=== PATIENT | female | born 1960 | race Caucasian/White ===

== ENCOUNTER 2019-09-22 02:04 | Outpatient (CLI) | payer OTHER, SELFPAY ==
[2019-09-22 09:03] LABS: Hemoglobin A1C 5.7 % (3.8-5.6)
[2019-09-22 09:25] LABS: ALT 21 U/L (14-59); AST 9 U/L (15-37); Albumin 3.8 g/dL (3.4-5.0); Alkaline Phosphatase 116 U/L (46-116); Anion Gap 10.6 mmol/L (3-11); BUN 15 mg/dL (7-18); Bilirubin, Total 0.5 mg/dL (0.2-1.0); CO2 25.4 mmol/L (21.0-32.0); Calcium 9.2 mg/dL (8.5-10.1); Calculated LDL 126 mg/dL (<100); Chloride 104 mmol/L (98-107); Cholesterol 191 mg/dL (<200); Glucose 98 mg/dL (74-106); HDL Cholesterol 52 mg/dL (40-60); Potassium 4.5 mmol/L (3.5-5.1); Sodium 140 mmol/L (136-145); Total Protein 7.6 g/dL (6.4-8.2); Triglyceride 66 mg/dL (<150)
[2019-09-23 10:57] LABS: Hepatitis C Ab w Rflx HCV PCR Negative (Negative)
[2019-09-23 11:27] LABS: HIV-1/2 Ag & Ab Screen Negative (Negative)
== END 2019-09-22 02:24 ==
PROVIDERS: PCP Nurse Practitioner Family; Visit Provider Family Medicine
DX: E78.5 Hyperlipidemia, unspecified (principal); E11.9 Type 2 diabetes mellitus without complications; Z11.3 Encounter for screening for infections with a predominantly sexual mode of transmission; Z11.4 Encounter for screening for human immunodeficiency virus [HIV]; Z11.59 Encounter for screening for other viral diseases
CPT/HCPCS: 36415; 80053; 80061; 86803; 87389; 83036

== ENCOUNTER 2019-09-27 10:35 | Outpatient (CLI) | payer OTHER, SELFPAY ==
[2019-09-27 11:07] LABS: Abs Immature Grans 0.02 k/cumm (0.0-0.09); Absolute Basophil Count 0.04 k/cumm (0.0-0.2); Absolute Eosinophil Count 0.01 k/cumm (0.0-0.7); Absolute Lymphocyte Count 3.46 k/cumm (1.2-3.4); Absolute Monocyte Count 0.79 k/cumm (0.11-0.7); Absolute Neutrophil Count 6.79 k/cumm (1.2-6.7); Basophils % 0.4; Eosinophils % 0.1; HGB 13.6 g/dL (12.0-15.5); Immature Grans % 0.2 %; Lymphocytes % 31.1; Mean Corpuscular Hemoglobin 30.5 pg (27.0-33.0); Mean Corpuscular Volume 89.7 fL (80-95); Mean Platelet Volume 9.6 fL (8.0-11.0); Monocytes % 7.1; Neutrophils % 61.1; Platelet Count 490 x1000/uL (130-400); RBC 4.46 m/cumm (4.00-5.20); RBC Distribution Width 13.9 % (11.7-14.6); White Blood Cell Count 11.11 k/cumm (4.4-10.8)
[2019-09-27 12:02] LABS: TSH (W/Ref FT4) 1.22 uIU/mL (0.36-3.74)
== END 2019-09-27 10:55 ==
PROVIDERS: PCP Nurse Practitioner Family; Visit Provider Nurse Practitioner Family
DX: R42 Dizziness and giddiness (principal)
CPT/HCPCS: 36415; 84443; 85025

== ENCOUNTER 2019-09-28 10:07 | Outpatient (CLI) | payer OTHER, SELFPAY | END 2019-09-28 10:27 | PROVIDERS: PCP Nurse Practitioner Family; Visit Provider Nurse Practitioner Family | DX: R42 Dizziness and giddiness (principal); I47.1 Supraventricular tachycardia; I49.1 Atrial premature depolarization | CPT/HCPCS: 93225 ==

== ENCOUNTER 2019-09-28 11:32 | Outpatient (REF) | payer OTHER, SELFPAY ==
[2019-09-29 12:55] LABS: Fecal Immunochemical Test Negative (Negative)
== END 2019-09-28 11:52 ==
LOC: LBN 11:32
PROVIDERS: PCP Nurse Practitioner Family; Visit Provider Nurse Practitioner Family
DX: Z12.11 Encounter for screening for malignant neoplasm of colon (principal)
CPT/HCPCS: 82274

== ENCOUNTER 2019-10-01 08:56 | Outpatient (CLI) | payer OTHER, SELFPAY ==
--- NOTE | 2019-10-01 10:08 | W.HOLTRPT ---
Date of service: 10/01/19 Time of Service: 10:08 Holter Monitor Report Holter Monitor Note: This is a 2-day Holter monitor ordered for indication of dizziness. ?The patient was in normal sinus rhythm for the majority of the recording. ?There were 3 episodes of supraventricular tachycardia with the longest lasting 11 beats. ?There were rare (less than 1%) premature atrial contractions. ?There were no episodes of ventricular tachycardia and rare (31 total) single ventricular ectopic beats. ?There were no pauses greater than 3 seconds, no evidence of atrial fibrillation and no episodes of high degree heart block. ?There were no patient triggered events.
== END 2019-10-01 09:16 ==
PROVIDERS: PCP Nurse Practitioner Family; Visit Provider Nurse Practitioner Family
DX: R42 Dizziness and giddiness (principal); I47.1 Supraventricular tachycardia; I49.1 Atrial premature depolarization
CPT/HCPCS: 93226

== ENCOUNTER 2019-11-25 01:09 | Outpatient (CLI) | payer OTHER, SELFPAY ==
[2019-11-25 11:43] LABS: Anion Gap 7.7 mmol/L (3-11); BUN 13 mg/dL (7-18); CO2 30.3 mmol/L (21.0-32.0); CREATININE 0.73 mg/dL (0.55-1.02); Calcium 9.7 mg/dL (8.5-10.1); Chloride 98 mmol/L (98-107); Glucose 111 mg/dL (74-106); Sodium 136 mmol/L (136-145)
== END 2019-11-25 01:29 ==
PROVIDERS: PCP Nurse Practitioner Family; Visit Provider Nurse Practitioner Family
DX: I10 Essential (primary) hypertension (principal)
CPT/HCPCS: 36415; 80048

== ENCOUNTER 2020-01-03 02:15 | Outpatient (CLI) | payer OTHER, SELFPAY ==
--- NOTE | 2020-01-03 08:00 | DI.MAMMO_ITS ---
EXAM: MG MAMMO SCREENING CLINICAL HISTORY: SCREENING, Z12.39 TECHNIQUE: Bilateral full field digital CC and MLO mammographic images were obtained with 3D tomosyn thesis and utilizing computer aided detection (CAD). COMPARISON: Available for comparison. FINDINGS: Masses/Architectural Distortion: There is a new nodular density in the upper outer quadrant of the ri ght breast. This area should be further evaluated with a spot compression view. Ultrasound may be i ndicated at that time. Microcalcifications: No suspicious pleomorphic-type are seen. Skin Thickening/Nipple Retraction: None. IMPRESSION: 1. New area of nodularity in the upper outer quadrant of the right breast. 2. Spot compression views and ultrasound are requested for further evaluation of the right breast. BI-RADS Category 0 - Assessment Incomplete: Need additional imaging evaluation Breast Density - Category B - Scattered areas of fibroglandular density A negative radiographic report should not delay biopsy if a dominant or clinically suspicious mass is present. Up to ten percent of cancers are not identified on mammography. A negative report may reinforce clinical impression. Adenosis and dense breasts may obscure an underlying neoplasm. False positive reports average 6 to 10%. Patient will receive a letter notifying them of these results.
== END 2020-01-03 02:35 ==
PROVIDERS: PCP Nurse Practitioner Family; Visit Provider Nurse Practitioner Family
DX: Z12.31 Encounter for screening mammogram for malignant neoplasm of breast (principal); R92.8 Other abnormal and inconclusive findings on diagnostic imaging of breast
CPT/HCPCS: 77063; 77067

== ENCOUNTER 2020-01-07 02:17 | Outpatient (CLI) | payer OTHER, SELFPAY ==
--- NOTE | 2020-01-07 | DI.MAMMO_ITS ---
EXAM: MG MAMMO SCREEN CALL BACK UNI CLINICAL HISTORY: F/U ABNL MAMMO, NEW NODULAR DENSITY UPPER OUTER QUADRANT. TECHNIQUE: Craniocaudal and mediolateral oblique Full Field Digital Mammography views of the right b reast with Computer Aided Diagnosis followed by Tomosynthesis and right breast ultrasound. COMPARISON: US US BREAST RT LIMITED from 01/07/2020 FINDINGS: Mammography/Tomosynthesis: Masses/Architectural Distortion: There is a well-circumscribed nodule in the 12 o'clock position of t he right breast which persists. Microcalcifictions: No suspicious pleomorphic-type are seen. Skin Thickening/Nipple Retraction: None. Right breast US: Echotexture: Normal appearance of the glandular tissue. Shadowing: No suspicious foci. Cyst: Ovoid anechoic well-circumscribed lesion at the 12 o'clock position 2 cm from the nipple measur ing 0.6 x 0.3 x 0.7 cm. This appears to correspond to the mammographic abnormality. Solid lesions: None seen. Ductal dilation: None. Lymph nodes: A few sonographically benign appearing lymph nodes are seen in the right axilla. The la rgest measures 1.9 x 1.4 x 1.9 cm. IMPRESSION: 1. No evidence of malignancy is noted. A 0.7 cm simple cyst is seen in the right breast to correspond to the mammographic abnormality. 2. Unless there is more urgent need, follow-up screening mammography is recommended, as per [employer] guidelines. 3. The findings were discussed with the patient on the date of the examination. BI-RADS Category 2 - Benign Findings Breast Density - Category B - Scattered areas of fibroglandular density A negative radiographic report should not delay biopsy if a dominant or clinically suspicious mass is present. Up to ten percent of cancers are not identified on mammography. A negative report may reinforce clinical impression. Adenosis and dense breasts may obscure an underlying neoplasm. False positive reports average 6 to 10%. Patient will receive a letter notifying them of these results.
== END 2020-01-07 02:37 ==
PROVIDERS: PCP Nurse Practitioner Family; Visit Provider Nurse Practitioner Family
DX: Z12.31 Encounter for screening mammogram for malignant neoplasm of breast (principal); R92.8 Other abnormal and inconclusive findings on diagnostic imaging of breast; N60.01 Solitary cyst of right breast; R59.0 Localized enlarged lymph nodes
CPT/HCPCS: 76642; 77063; 77067

== ENCOUNTER 2020-01-18 00:42 | Outpatient (CLI) | payer OTHER, SELFPAY ==
--- NOTE | 2020-01-18 07:15 | DI.RAD_ITS ---
EXAM: XR WRIST RT COMPLETE CLINICAL HISTORY: Pain swelling ?OA vs. tendonitis vs. other,M25.531 TECHNIQUE: COMPARISON: No exams were available for comparison FINDINGS: Three views were obtained. There is mild diffuse soft tissue swelling of the wrist. There is demine ralization bones of the wrist in a nonspecific pattern. There is marked narrowing of the cartilagino us joint space of greater multangular 1st metacarpal joint with subchondral sclerosis and cyst format ion well as prominent hypertrophic osteophytes at this site. Mild cartilaginous joint space narrowin g noted as well at the lesser multangular is 2nd metacarpal joint and at the capitate 3rd metacarpal joint. Slight widening navicular lunate joint may be present. No other significant alignment abnorm ality or other bony abnormality seen. IMPRESSION: Severe degenerative change at greater multangular 1st metacarpal joint. Nonspecific demineralization of the bones of the wrist.
== END 2020-01-18 01:02 ==
PROVIDERS: PCP Nurse Practitioner Family; Visit Provider Nurse Practitioner Family
DX: M25.531 Pain in right wrist (principal); M18.11 Unilateral primary osteoarthritis of first carpometacarpal joint, right hand; M79.89 Other specified soft tissue disorders; M85.88 Other specified disorders of bone density and structure, other site
CPT/HCPCS: 73110

== ENCOUNTER 2020-02-11 08:51 | Outpatient (CLI) | payer OTHER, SELFPAY ==
--- NOTE | 2020-02-11 08:45 | DI.RAD_ITS ---
EXAM: XR WRIST RT LIMITED CLINICAL HISTORY: R wrist pain TECHNIQUE: COMPARISON: CR XR WRIST RT COMPLETE from 01/18/2020 FINDINGS: Single clenched fist view of the wrist was obtained. There are severe degenerative changes at the gr eater multangular 1st metacarpal joint. There are moderate degenerative changes involving the interc arpal joints of the distal carpal row. There is widening of the navicular lunate joint which may ind icate ligamentous laxity or prior injury. There is an ulnar minus variance. IMPRESSION:
== END 2020-02-11 09:11 ==
PROVIDERS: PCP Nurse Practitioner Family; Referring Provider Nurse Practitioner Family; Visit Provider Physician Assistant
DX: M25.531 Pain in right wrist (principal); M19.031 Primary osteoarthritis, right wrist
CPT/HCPCS: 73100

== ENCOUNTER 2020-02-17 00:31 | Outpatient (CLI) | payer OTHER, SELFPAY ==
--- NOTE | 2020-02-17 08:15 | DI.MRI_ITS ---
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 TECHNIQUE: Multiplanar multisequence MRI was performed. COMPARISON: None. FINDINGS: BONES: There is no fracture or contusion pattern. There is marrow edema seen in the distal radius and ulna, all of the carpal bones and the proximal 2nd through 5th metacarpal bones. Subchondral cysts are seen in several bones including the proximal 2nd 3rd and 4th metacarpal bones and the scaphoid. No evidence of an occult fracture is identified. JOINTS: Fluid is seen within the radiocarpal and carpal joints. TENDONS: Flexors: Unremarkable. Extensors: Unremarkable. MUSCLES: Unremarkable. MEDIAN NERVE: Unremarkable on this noncontrast examination. SOFT TISSUES: Hyperintense signal is seen in the soft tissues around the wrist. There is also for in tense signal seen surrounding the joints in the carpus and the metacarpal joints LIGAMENTS: No gross abnormality is seen at the scapholunate ligament. TRIANGULAR FIBROCARTILAGE: Unremarkable. OTHER: IMPRESSION: 1. Diffuse marrow edema, joint effusions, subchondral cysts and soft tissue swelling involving the wr ist as described above. Findings suspicious for an inflammatory arthritis. An infectious arthritis cannot be excluded. 2. No evidence of an occult fracture or ligament tear. DATA REPOSITORY:
== END 2020-02-17 00:51 ==
PROVIDERS: PCP Nurse Practitioner Family; Visit Provider Physician Assistant
DX: M25.331 Other instability, right wrist (principal); M25.431 Effusion, right wrist; M25.831 Other specified joint disorders, right wrist; S63.004A Unspecified dislocation of right wrist and hand, initial encounter
CPT/HCPCS: 73221

== ENCOUNTER 2020-03-08 03:23 | Outpatient (CLI) | payer OTHER, SELFPAY ==
[2020-03-08 14:50] LABS: HCT 38.8 % (36.0-46.0); HGB 12.7 g/dL (11.2-15.7); MCH 30.1 pg (27.0-33.0); MCHC 32.7 % (32.0-36.0); MCV 91.9 fL (80-95); MPV 9.3 fL (8.0-11.0); Platelet Count 438 10^3/uL (130-400); RBC 4.22 10^6/uL (3.93-5.22); RDW 13.3 % (11.7-14.6); RDW-SD 45.1 fL; WBC 10.68 10^3/uL (4.4-10.8)
[2020-03-08 16:05] LABS: C-Reactive Protein 0.73 mg/dL (0.0-0.3)
[2020-03-08 16:09] LABS: ESR 23 mm/hr (0-30)
[2020-03-08 21:24] LABS: Rheumatoid Factor 41.9 IU/mL (<12.0)
[2020-03-09 15:44] LABS: ANA Interpretation Positive (Negative); ANA Titer Pattern 1:160 Speckled
== END 2020-03-08 03:43 ==
PROVIDERS: PCP Nurse Practitioner Family; Visit Provider Student in an Organized Health Care Education/Training Program
DX: M19.031 Primary osteoarthritis, right wrist (principal)
CPT/HCPCS: 36415; 85027; 85652; 86038; 86140; 86431

== ENCOUNTER 2020-10-31 04:13 | Outpatient (CLI) | payer OTHER, SELFPAY ==
[2020-10-31 11:27] LABS: HCT 42.4 % (36.0-46.0); HGB 14.5 g/dL (11.2-15.7); MCH 30.7 pg (27.0-33.0); MCHC 34.2 % (32.0-36.0); MCV 89.6 fL (80-95); MPV 9.3 fL (8.0-11.0); Nucleated RBC 0 %; Platelet Count 440 10^3/uL (130-400); RBC 4.73 10^6/uL (3.93-5.22); RDW 13.6 % (11.7-14.6); RDW-SD 45.1 fL; WBC 12.02 10^3/uL (4.4-10.8)
[2020-10-31 12:20] LABS: ALT 28 U/L (14-59); AST 12 U/L (15-37); Alkaline Phosphatase 142 U/L (46-116); Anion Gap 10.3 mmol/L (3-11); BUN 14 mg/dL (7-18); CO2 26.7 mmol/L (21.0-32.0); CREATININE 0.7 mg/dL (0.55-1.02); Calcium 9.2 mg/dL (8.5-10.1); Calculated LDL 138 mg/dL (<100); Chloride 103 mmol/L (98-107); Cholesterol 208 mg/dL (<200); Glucose 109 mg/dL (74-106); HDL Cholesterol 50 mg/dL (40-60); Potassium 4.5 mmol/L (3.5-5.1); Sodium 140 mmol/L (136-145); Total Protein 8.2 g/dL (6.4-8.2); Triglyceride 102 mg/dL (<150)
[2020-10-31 12:27] LABS: Absolute Lymphocyte Count 5.65 10^3/uL (1.2-3.4); Absolute Monocyte Count 1.08 10^3/uL (0.1-0.8); Absolute Neutrophil Count 5.29 10^3/uL (1.2-6.7); Atypical Lymphocytes % 7; Diff Comment Manual Differential; RBC Morphology Normal
[2020-10-31 12:37] LABS: Bilirubin, Total 0.5 mg/dL (0.2-1.0)
[2020-10-31 12:46] LABS: Hemoglobin A1C 5.7 % (<5.7)
== END 2020-10-31 04:14 | disposition home or self-care (01) ==
LOC: LBO 04:13
PROVIDERS: PCP Nurse Practitioner Family; Visit Provider Nurse Practitioner Family
DX: D47.3 Essential (hemorrhagic) thrombocythemia (principal); I10 Essential (primary) hypertension; R73.01 Impaired fasting glucose; E78.5 Hyperlipidemia, unspecified
CPT/HCPCS: 36415; 80053; 80061; 83036; 85025

== ENCOUNTER 2020-11-17 08:41 | Outpatient (CLI) | payer OTHER, SELFPAY ==
[2020-11-17 10:14] LABS: Source Nasal/Nares
[2020-11-17 13:30] LABS: COVID-19 PCR Negative (Negative)
== END 2020-11-17 08:42 | disposition home or self-care (01) ==
PROVIDERS: PCP Nurse Practitioner Family; Visit Provider Surgery
DX: Z20.822 Contact with and (suspected) exposure to COVID-19 (principal); Z01.818 Encounter for other preprocedural examination
CPT/HCPCS: 87635

== ENCOUNTER 2020-11-20 15:02 | Observation (INO) | payer OTHER, SELFPAY ==
[2020-11-20] VITALS (12 sets, daily range): BP systolic 102–145; BP diastolic 69–99; PULSE 70–84; RESP 16–20; TEMP 36.2–37; O2SAT 83–100; BMI 28.8
--- NOTE | 2020-11-20 06:58 | COLE_ITS ---
Date of service: 11/20/20 Time of Service: 12:59 Colonoscopy Report Date of procedure: 11/20/20 Pre-op diagnosis general: Colon Cancer Screening Post-op diagnosis procedure note: other (polyps and diverticulosis) Procedure: Colonoscopy with polypectomy Surgeon: Judy Khan Anesthesia Type: General:No Airway (ASA 2/Charli Molina CRNA) Estimated blood loss (mL): 3 Pathology: other (Transverse polyp, sigmoid polyp and rectal polyp x5) Complications: None Disposition: same day Indications: The patient is here for Colonoscopy pre-op. She has no family history of colon cancer. She has not had any bowel habit changes. -Discussed colonoscopy bowel prep as well as the procedure. Discussed possible complications of the procedure to include bleeding, pain, perforation, missed small lesion/polyp, sore throat, aspiration and adverse reaction to the medications. Questions were answered to patient?s satisfaction. No guarantees were implied or given. Prep: Miralax/Dulcolax Procedure Start Time: 12:59 Procedure End Time: 13:25 Retraction Time: 17 minutes Findings: 7 small polyps mild diverticulosis Procedure Description: After informed consent was obtained the patient was taken to the procedure room and placed in a left decubitous position. Monitors were applied and a time out was done. The patients name, date of , procedure, allergies to medications and metal in their body was reviewed. The patient was then sedated. Once sedated and comfortable a rectal exam was done. External exam was normal. Internal exam revealed a normal sphincter tone and no palpable masses. The scope was then introduced and retro-flexed. No internal hemorrhoids, polyps or masses were identified on retro-flexion. The scope was then advanced to the cecum without difficulty. The ileocecal vlave and appendiceal orifice were remigio ntified. The prep was adequate. The scope was then slowly retracted over 17 minutes back into the rectum. Polyps were removed with cold forceps in the transverse colon, sigmoid colon and rectum. There was mild diverticulosis noted. The scope was removed and the patient was woken up and taken back to Same day surgery in stable condition. The patient tolerated the procedure well and there were no immediate complications. Follow up: The patient should follow up in 5 years unless they develop changes in bowel habits or other new gastrointestinal complaints.
--- NOTE | 2020-11-20 06:59 | W.PM.DSUDISC ---
Discharge Plan Disposition Patient Disposition: HOME Condition: Good Discharge Details Reason For Visit: SCREENING Attending Provider: Judy Khan Primary Care Provider: Leticia Samuels Home Meds and New Rx's Prescriptions: Continued Adult Probiotic 3 billion cell capsule 3,000 mmu cells PO DAILY RF: 0 turmeric root extract 1,053 mg tablet 1,053 mg PO DAILY RF: 0 aspirin 81 mg Tablet,Delayed Release (Dr/Ec) 81 mg PO DAILY RF: 0 Discontinued bisacodyl [Dulcolax (bisacodyl)] 5 mg tablet,delayed release (DR/EC) 5 mg PO ONCE Qty: 4 RF: 0 polyethylene glycol 3350 17 gram/dose powder 238 g PO ONCE Qty: 238 RF: 0 No Action (DME) Blood Glucose Test Strip 1 ea Miscellaneous DAILY Qty: 100 RF: 3 (DME) lancets 28 gauge misc 1 ea Miscellaneous DAILY Qty: 100 RF: 3 (DME) blood-glucose meter 1 EACH misc 1 ea Miscellaneous DAILY Qty: 1 RF: 0 Discharge Instructions Instructions: Diverticulosis (DC) Additional Instructions: Findings:7 small polyps Diverticulosis Follow up: 5 years Please call if you develop: fevers >101.5 Nausea or Vomiting Abdominal pain that is not transient DAY SURGERY UNIT POST ENDOSCOPY INSTRUCTIONS 1. Because there will be medication in your system for the next 24 hours, you may feel a little sleepy. Your coordination will be affected. Therefore: a. Do not drive or operate dangerous equipment for 24 hours. b. Do not drink alcohol beverages for 24 hours (not even beer). c. Plan to go home and rest for the day. 2. Generally there are no restrictions on your activity after a day or so has gone by, but you may feel a bit fatigued for a few days. 3 After you arrive home you may have a light meal and return to a normal diet as you can tolerate it without feeling sick to your stomach. 4. After surgery, you may feel pain or discomfort. This should be only transient, but if it persists please contact your doctor. 5. If there are any questions regarding the findings of your procedure, please feel free to contact your doctor. 6. If you are unable to contact your doctor with a problem, contact the hospital at [phone]. 7. Continue all your regular medications unless directed otherwise. I understand the above instructions and have no questions. Signature of Patient or Responsible Adult Escort Date/Time Name of Responsible Adult Escort Signature of Nurse Date/Time Activity:: Activity as Tolerated Diet:: High Fiber diet Discharge Orders Discharge Orders: Discharge Order (Routine); Ordered 11/20/20 Ordered By: Judy Khan
[2020-11-20] MEDS: Lactated Ringers 1,000 ML 80 ML IV ×2 (12:37→23:16)
--- NOTE | 2020-11-20 12:41 | W.ANESPRE ---
Anesthesia Assessment and Plan Anesthesia History Personal History: No History of Anesthesia Complications Family History: No Family History of Anesthesia Complications Exercise Tolerance Exercise Tolerance: Metabolic Equivalents>4 Cardiac & Pulmonary Exam Cardiac Exam: Normal S1/S2 Heart Sounds Pulmonary Exam: Clear Bilateral Breath Sounds Airway Exam Known Difficult Airway: No Mallampati Class: 3 Mouth Opening: Narrow (< 3cm) Thyromental Distance: Greater than 3 cm Neck Range of Motion: Full ROM Neck Circumference: Normal Teeth Condition: Normal Dentition ASA Classification ASA Score: ASA 2 ASA Emergency: No NPO Status NPO Status: NPO Clears >2 hours, Solids >8 hours Status Status: Not Per Patient Anesthesia Plan Anesthesia Technique: General Anesthesia Airway Planned: Natural Airway Monitors Used: Standard Monitors General Info Date of Service This is a Shared Provider Document. All providers who document on this will be required to sign document once completed. Please Communicate with Team Date Performed: 11/20/20 Height: 4 ft 10 in Weight: 62.5 kg Body Mass Index (BMI): 28.8 Surgical Procedure: Operation Date: 11/20/20 13:35 Proposed Procedures Side Surgeon abhijit Khan MD Vital Signs and Lab Results Vital Signs Most Recent Vital Signs in EMR: Most Recent Vital Signs Temp Pulse Resp BP Pulse Ox 36.3 C L 83 18 144/91 H 83 L 11/20/20 12:28 11/20/20 12:28 11/20/20 12:28 11/20/20 12:28 11/20/20 12:28 Point of Care Results Nursing Point of Care Results: No Data to Display Lab Results Blood Type / Crossmatch: No Data to Display Complete Blood Count: White Blood Count 12.02 10^3/uL (4.4-10.8) H 10/31/20 11:17 10/31/20 Red Blood Count 4.73 10^6/uL (3.93-5.22) 10/31/20 11:17 10/31/20 Hemoglobin 14.5 g/dL (11.2-15.7) 10/31/20 11:17 10/31/20 Hematocrit 42.4 % (36.0-46.0) 10/31/20 11:17 10/31/20 Platelet Count 440 10^3/uL (130-400) H 10/31/20 11:17 10/31/20 Complete Metabolic Panel: Sodium Level 140 mmol/L (136-145) 10/31/20 11:17 10/31/20 Potassium Level 4.5 mmol/L (3.5-5.1) 10/31/20 11:17 10/31/20 Chloride Level 103 mmol/L (98-107) 10/31/20 11:17 10/31/20 Carbon Dioxide Level 26.7 mmol/L (21.0-32.0) 10/31/20 11:17 10/31/20 Blood Urea Nitrogen 14 mg/dL (7-18) 10/31/20 11:17 10/31/20 Creatinine 0.7 mg/dL (0.55-1.02) 10/31/20 11:17 10/31/20 Calcium Level 9.2 mg/dL (8.5-10.1) 10/31/20 11:17 10/31/20 Albumin 4.0 g/dL (3.4-5.0) 10/31/20 11:17 10/31/20 Glucose Level 109 mg/dL (74-106) H 10/31/20 11:17 10/31/20 Hemoglobin A1c 5.7 % (<5.7) 10/31/20 11:17 10/31/20 C-Reactive Protein 0.73 mg/dL (0.0-0.3) H 03/08/20 14:40 03/08/20 Liver Function Panel: Alanine Aminotransferase (ALT/SGPT) 28 U/L (14-59) 10/31/20 11:17 10/31/20 Aspartate Amino Transf (AST/SGOT) 12 U/L (15-37) L 10/31/20 11:17 10/31/20 Coagulation Panel: No Data to Display Cardiac Panel: No Data to Display Arterial Blood Gas: No Data to Display Venous Blood Gas: No Data to Display Pancreas Panel: No Data to Display Thyroid Panel: Thyroid Stimulating Hormone (TSH) 1.22 uIU/mL (0.36-3.74) 09/27/19 10:47 09/27/19 Infectious Disease: Coronavirus (COVID-19)(PCR) Negative (Negative) 11/17/20 08:51 11/17/20 Coronavirus 2019 Source Nasal/nares 11/17/20 08:51 11/17/20 HIV (1&2) Ag and Ab, 4th Generation Negative (Negative) 09/22/19 08:35 09/22/19 Hepatitis C Antibody Negative (Negative) 09/22/19 08:35 09/22/19 Blood Cultures: Blood Culture Toxicology Panel: No Data to Display Panel: No Data to Display PFSH Active Problems Active Problems: Problem Status Onset Code Headache R51 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 Positive colorectal cancer screening using Cologuard test ~10/2020 R19.5 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 Essential hypertension I10 Osteoarthritis (arthritis due to wear and tear of joints) M19.90 Rosacea 07/17/15 L71.9 Tobacco use disorder F17.200 Mental health disorder F99 IFG (impaired fasting glucose) 11/07/16 R73.01 Hyperlipidemia 11/07/16 E78.5 Gastroesophageal reflux disease 11/07/17 K21.9 Depression F32.9 Anxiety F41.9 Medical History Anxiety Depression 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 denies [id number] Surgical History nasal polyp removal (~1979) Social History Smoking/Tobacco Use Status: Current every day Tobacco Type: cigarettes Smoking packs per day: 1 Smoking cigarettes per day: 20.0 Years smoked: 38 Smoking pack-years: 38.00 Tobacco: How many years used: 41 Smoking risk assessment performed?: Yes Alcohol Intake: current Alcohol Intake frequency: holidays/special occasions only Drug use: Never Substance use type: marijuana Details: Etibles at night to help with sleep Caregiver/Support person: No Household members: spouse Housing: house Number of Children: 0 Communication Needs: None Education Level: high school Do you need help understanding health information?: Rarely 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, 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 Pets and animals: No Sexually active: Yes Do you think of yourself as: straight/heterosexual Current gender identity: female What is your relationship status?: How often do you talk on the phone with friends or family?: three or more times per week How often do you get together with friends or relatives?: once per week Do you belong to any clubs or organized social groups?: no Panel score (0-1 are the most socially isolated patients): 2 What type of physical activity do you participate in: other Details: snowshoeing Duration: 60-90 minutes/day Frequency: 1-2 times per week Catrachita/Restorationist: Voodoo Seatbelt use: sometimes Helmet use: No Drive intox or ride w/intox driver education road instructor: No Working smoke detector in home: No Fire extinguisher in home: Yes Carbon monox detector in home: No Firearms in home: Yes Firearms unloaded and locked: Yes Do you feel safe at home: Yes Do you feel safe in your relationship?: Yes Meds Allergies and Home Medications Allergies Allergy/AdvReac Type Severity Reaction Status Date / Time gluten AdvReac Intermediate Diarrhea Verified 11/17/20 10:32 Home Medication Medication Instructions Recorded blood-glucose meter #1 unit 12/10/17 lactobacillus combination no.8 3 3,000 mmu cells PO DAILY 09/27/19 billion cell capsule turmeric root extract 1,053 mg 1,053 mg PO DAILY 09/27/19 tablet blood sugar diagnostic #100 strip 10/20/19 lancets 28 gauge #100 ea 10/20/19 aspirin 81 mg PO DAILY 11/17/20 Current Visit Medications: Current Medications Generic Name Dose Route Start Last Admin Trade Name Freq PRN Reason Stop Dose Admin Hyoscyamine Sulfate 0.125 mg 11/20/20 07:01 Hyoscyamine 0.125 Mg Sl/Oral/Chew SL DIRECTED PRN Ringer's Solution 1,000 mls @ 80 mls/hr 11/20/20 06:00 11/20/20 12:37 IV 12/17/20 23:59 80 mls/hr INFUSION SUNIL Administration IV Miscellaneous Supplies 1 each 11/20/20 06:00 Iv Access IV 12/17/20 23:59 DIRECTED SUNIL Ondansetron HCl 4 mg 11/20/20 07:01 Ondansetron 4 Mg/2 Ml Vial IVP Q4H PRN PRN Nausea / Vomiting Sodium Chloride 0 ml 11/20/20 06:00 Normal Saline Flush 10 Ml Syr IV 12/17/20 23:59 PRN PRN Sodium Chloride 0 ml 11/20/20 06:00 Normal Saline 10 Ml Vial IJ 12/17/20 23:59 DIRECTED PRN Sterile Water 0 ml 11/20/20 06:00 Water,Injection,Sterile 10 Ml Vial IJ 12/17/20 23:59 DIRECTED PRN
--- NOTE | 2020-11-20 13:13 | BOWEL_PTH ---
PATIENT: Quita Madden LOC: U#:[id number] AGE/SX: 60/F ROOM: 227 RE11/20/[address]: Judy Khan MD : 1960 BED: A DIS: 11/21/2020 SPEC #: [id number] RECD: 11/20/20 17:36 STATUS: DALIA REQ #: [id number] PRANAV: 11/20/20 13:[address]: Judy Khan DEPT: Surgical Specimen RECD BY: Ashley Ibarra ENTERED: 11/20/20 17:37 SP TYPE: Bowel OTHR DR: Leticia Samuels, DELILAH Tissues: 1 - BIOPSY BOWEL 2 - BIOPSY BOWEL 3 - BIOPSY BOWEL Procedures: GROSS AND MICRO LEVEL 4 Comments: [id number]
--- NOTE | 2020-11-20 14:15 | DI.RAD_ITS ---
EXAM: XR PORTABLE CHEST AP CLINICAL HISTORY: ? aspiration. TECHNIQUE: 2D digital imaging was performed. COMPARISON: No exams were available for comparison FINDINGS: Heart size is normal. The mediastinum is not widened. Right lung is clear. Increased markings noted in the lingular segment of the left lung pericardiac r egion. No pleural effusions. No pneumothorax. IMPRESSION: As above. Recommend nonportable PA and lateral views when clinically possible. DATA REPOSITORY: RADIATION DOSE DELIVERED: All CT scans at this facility use at least one of these dose optimization techniques: automated exposure control; mA and/or kV adjustment per patient size (includes targeted e xams where dose is matched to clinical indication); or iterative reconstruction.
--- NOTE | 2020-11-20 14:48 | W.ANESPOSTOP ---
Postoperative Evaluation Date, Time and Location Date Performed: 11/20/20 Time Performed: 14:48 Patient Location: Day Surgery Unit Vital Signs Most Recent Imported Vital Signs: Most Recent Vital Signs Temp Pulse Resp BP Pulse Ox 36.3 C L 76 20 122/70 92 11/20/20 14:15 11/20/20 14:15 11/20/20 14:15 11/20/20 14:15 11/20/20 14:15 Assessment Mental Status: Awake (Alert & Oriented to Patient Baseline) Airway and Respiratory Function: Abnormal Respiratory exam (See explanation) Cardiovascular Function: Hemodynamically Stable Hydration Status: Adequately Hydrated Nausea & Vomiting: No Nausea or Vomiting Pain: Pt. Denies Any Pain Peripheral Nerve Block: Patient did not receive a nerve block Teaching Patient Teaching: Advised to seek followup for the following concerns (See explanation) (Discussed signs and symptoms of aspiration pneumonia. Discussed that she had copious amounts of clear secretions during the case which caused a laryngospasm and that she may have had some of those secretions go to her lungs. ) Concerns: Other
[2020-11-20] MEDS: Albuterol 2.5 MG/3 ML INH SOLN VIAL UPD (14:52)
--- NOTE | 2020-11-20 15:10 | W.PM.HP.N ---
Date of service: 11/20/20 Time of Service: 15:10 Assessment and Plan Assessment and plan (1) Aspiration pneumonitis: Status: Acute Assessment and plan: Mrs. Madden is a pleasant 60 year old female s/p colonoscopy who unfortunately aspirated some clear secretions. I will admit her overnight and start her on prednisone and antibiotics Hopefully home tomorrow History of Present Illness Narrative: Mrs. Madden is a 60 year old female who was here today for a colonoscopy after having a positive Cologuard test. She has a history of smoking. During the procedure the patient started to cough. She had a lot of clear secretions in her mouth which were beeing suctioned out buy anesthesia. Once the colonoscopy was done the patient was woken up and she continued to cough and require oxygen to keep her sats over 90%. She was given an albuterol treatment without much improvement. 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 denies hwsd-Emlj-yudsvpvkin Surgical History nasal polyp removal (~1979) Family History Mother , alzheimers, HF at age 73. Arthritis Heart disease Bipolar 1 disorder Colitis Dementia Father , [place] at age 73. Diabetes Hyperlipidemia Myocardial infarction Heart disease Hypertension Sister Hypertension Sister Mental disorder Bipolar disorder Sister Colitis Grandfather Cancer Intestinal cancer Brother Mental disorder Depression Social History Smoking/Tobacco Use Status: Current every day Tobacco Type: cigarettes Smoking packs per day: 1 Smoking cigarettes per day: 20.0 Years smoked: 38 Smoking pack-years: 38.00 Tobacco: How many years used: 41 Smoking risk assessment performed?: Yes Alcohol Intake: current Alcohol Intake frequency: holidays/special occasions only Drug use: Never Substance use type: marijuana Details: Etibles at night to help with sleep Caregiver/Support person: No Household members: spouse Housing: house Number of Children: 0 Communication Needs: None Education Level: high school Do you need help understanding health information?: Rarely 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, 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 Pets and animals: No Sexually active: Yes Do you think of yourself as: straight/heterosexual Current gender identity: female What is your relationship status?: How often do you talk on the phone with friends or family?: three or more times per week How often do you get together with friends or relatives?: once per week Do you belong to any clubs or organized social groups?: no Panel score (0-1 are the most socially isolated patients): 2 What type of physical activity do you participate in: other Details: snowshoeing Duration: 60-90 minutes/day Frequency: 1-2 times per week Catrachita/Voodoo: Sikh Seatbelt use: sometimes Helmet use: No Drive intox or ride w/intox oil transport driver: No Working smoke detector in home: No Fire extinguisher in home: Yes Carbon monox detector in home: No Firearms in home: Yes Firearms unloaded and locked: Yes Do you feel safe at home: Yes Do you feel safe in your relationship?: Yes Female Reproductive History Menstrual Menopause type: natural (LMP ~2003) Meds Allergies and Home Medications Allergies Allergy/AdvReac Type Severity Reaction Status Date / Time gluten AdvReac Intermediate Diarrhea Verified 11/17/20 10:32 Home Medications Medication Instructions Recorded Confirmed Type blood-glucose meter #1 unit 12/10/17 09/28/20 Rx lactobacillus combination no.8 3 3,000 mmu cells PO DAILY 09/27/19 11/20/20 History billion cell capsule turmeric root extract 1,053 mg 1,053 mg PO DAILY 09/27/19 11/17/20 History tablet blood sugar diagnostic #100 strip 10/20/19 09/28/20 Rx lancets 28 gauge #100 ea 10/20/19 09/28/20 Rx aspirin 81 mg PO DAILY 11/17/20 11/20/20 History Exam Const General: cooperative, comfortable and no acute distress Orientation: alert and oriented x3 HENMT Head: normocephalic and atraumatic Resp Effort & Inspection: labored Auscultation: wheezes lower bilaterally Cardio Rate: regular rate Rhythm: regular rhythm Results Last Vital Signs Temp 97.5 F L 11/20/20 14:45 Pulse 74 11/20/20 14:45 Resp 20 11/20/20 14:45 BP 128/73 11/20/20 14:45 Pulse Ox 100 11/20/20 14:45 COVID-19 Screening Have you, or household traveled for leisure in last 14 days?: No Had IN PERSON contact w/suspected or confirmed C-19 person: No
[2020-11-20] MEDS: predniSONE 20 MG TAB PO (16:17)
[2020-11-20] MEDS: Enoxaparin 40 MG/0.4 ML SYR SC (16:17)
[2020-11-20] MEDS: Amoxicillin 875/Clav. 125 TAB PO (20:24)
[2020-11-21] MEDS: LORazepam 2 MG/ML VIAL 0.5 MG IVP (00:01)
[2020-11-21] MEDS: Normal Saline 10 ML VIAL IJ (00:01)
[2020-11-21 05:05] VITALS: BP 128/71; PULSE 76; RESP 18; TEMP 37.1; O2SAT 92
--- NOTE | 2020-11-21 07:16 | W.PM.PROGNOT ---
Date of Service Date of service: 11/21/20 Time of Service: 07:16 Assessment and Plan Assessment and plan (1) Aspiration pneumonitis: Status: Acute Assessment and plan: Patient is utilizing the incentive spirometer. SP02 92% on room air. Encouraged ambulation and deep breathing. She denies any pain or SOB Continue steroids If she continues to do well with activity, d/c home later today. Subjective Subjective Interval history since last seen: patient reports that she is doing okay. She denies any feelings of SOB or pain. She states that she was 'given something last night, which helped her sleep. Exam Const General: cooperative, healthy appearing and comfortable Orientation: alert and oriented x3 Resp Effort & Inspection: normal respiratory effort Other: SpO2 92% on room air Objective Last Vital Signs Temp 37.1 C 11/21/20 05:05 Pulse 76 11/21/20 05:05 Resp 18 11/21/20 05:05 BP 128/71 11/21/20 05:05 Pulse Ox 92 11/21/20 05:05
[2020-11-21 08:01] VITALS: BP 127/83; PULSE 72; RESP 17; TEMP 37.2; O2SAT 94
--- NOTE | 2020-11-21 08:50 | DI.RAD_ITS ---
EXAM: XR CHEST 2V PA LATERAL CLINICAL HISTORY: possible aspiration TECHNIQUE: 2D digital imaging was performed. COMPARISON: CR XR PORTABLE CHEST AP from 11/20/2020 FINDINGS: MEDIASTINUM: Normal. HEART: Normal. PULMONARY VASCULATURE: Normal. LUNGS: There has been a slight increase in the left lingular infiltrate compared to the prior examina tion. There is also question of a developing right basilar infiltrate medially. PLEURAL SPACE: No pleural effusion or pneumothorax. BONE:Within normal limits for the patient's age. OTHER FINDINGS:Normal. IMPRESSION: Progressing left lingular infiltrate. Question of a developing right basilar infiltrate. DATA REPOSITORY: RADIATION DOSE DELIVERED:
[2020-11-21] MEDS: predniSONE 20 MG TAB PO (09:03)
[2020-11-21] MEDS: Amoxicillin 875/Clav. 125 TAB PO (09:03)
[2020-11-21 11:30] VITALS: BP 134/85; PULSE 83; RESP 17; TEMP 36.3; O2SAT 92
[2020-11-21 15:01] VITALS: BP 142/83; PULSE 82; RESP 18; TEMP 36.3; O2SAT 92
--- NOTE | 2020-11-21 16:26 | W.PM.DS.N ---
Date of service: 11/21/20 Time of Service: 16:26 DS: Diagnosis Discharge Diagnosis (1) Aspiration pneumonitis: Status: Acute Discharge Plan Disposition Patient Disposition: HOME Condition: Good Discharge Details Reason For Visit: ASPIRATION PNEUMONITIS Admit Date/Time: 11/20/20 15:02 Admit Provider: Judy Khan Attending Provider: Judy Khan Primary Care Provider: Leticia Samuels Home Meds and New Rx's Prescriptions: New amoxicillin-pot clavulanate [Augmentin] 875-125 mg tablet 1 tab PO Q12H Qty: 10 RF: 0 Continued Adult Probiotic 3 billion cell capsule 3,000 mmu cells PO DAILY RF: 0 turmeric root extract 1,053 mg tablet 1,053 mg PO DAILY RF: 0 aspirin 81 mg Tablet,Delayed Release (Dr/Ec) 81 mg PO DAILY RF: 0 Discontinued bisacodyl [Dulcolax (bisacodyl)] 5 mg tablet,delayed release (DR/EC) 5 mg PO ONCE Qty: 4 RF: 0 polyethylene glycol 3350 17 gram/dose powder 238 g PO ONCE Qty: 238 RF: 0 No Action (DME) Blood Glucose Test Strip 1 ea Miscellaneous DAILY Qty: 100 RF: 3 (DME) lancets 28 gauge misc 1 ea Miscellaneous DAILY Qty: 100 RF: 3 (DME) blood-glucose meter 1 EACH misc 1 ea Miscellaneous DAILY Qty: 1 RF: 0 Discharge Instructions Instructions: Diverticulosis (DC) Additional Instructions: Findings:7 small polyps Diverticulosis Please call if you develop: fevers >100.5 Nausea or Vomiting Coughing up green or yellow sputum (clear or yellow is fine) -Follow-up with Dr. Maldonado 11[facility]23 at 1[facility] -Follow/ up w/ Dr. Khan 11/28 at 1:30pm to discuss polyps at [facility] -no restrictions on diet -no strenuous activity/no lifting over 20#'s until follow up appt. on -you can drive -Use the incentive spirometry (breathing cobol application developer?) 10x/hour while awake. -We do want you up walking, at least 5-6 times per day. This is very important to prevent pneumonia and blood clots. You can climb stairs, take them slowly. -You may find that you are very tired after surgery- this is normal. -please do not smoke for a minimum of 72 hours. Stopping smoking is very important to your overall health. -gargle w/salt water 5-6 times a day as needed for sore throat. This should improve in 1-2 days. Antibiotic: Augmentin start this tonight -Kefir or probiotics daily while on antibiotics -You probably will not have a regular BM for another 2-3 days Stand Alone Forms: Wilbert Elias ([facility]) Referrals: Leticia Samuels NP [Primary Care Provider] - 11/23/20 9:30 am Judy Khan MD [ [facility] STAFF PHYSICIAN] - 11/28/20 1:30 pm Activity:: see above Equipment/Supplies:: No Equipment Needed Diet:: As Tolerated DS: Summary Time Spent with Patient providing and/or coordinating discharge services: Less than 30 minutes Status at Discharge Functional status at discharge: independent ambulation Overall status at discharge: patient is progressing back to baseline Mental Status: mental status grossly normal Speech and Movement: speech and movement normal Mood: congruent mood Affect: normal affect Exam Psych Mental Status: mental status grossly normal Speech and Movement: speech and movement normal Mood: congruent mood Affect: normal affect DS: Data Vitals/I&O Vitals and I&O: Vital Signs Temperature 36.3 C L 11/21/20 15:01 Temperature Source Tympanic 11/21/20 15:01 Pulse 82 11/21/20 15:01 Pulse Rhythm Regular 11/21/20 15:55 Respiratory Rate 18 11/21/20 15:01 Respiratory Effort Non-Labored 11/21/20 15:55 Respiratory Depth Normal 11/21/20 15:55 Respiratory Pattern Normal 11/21/20 15:55 Blood Pressure 142/83 H 11/21/20 15:01 Pulse Oximetry 92 11/21/20 15:01 Respiratory End-tidal CO2 36 11/20/20 13:40 Oxygen Delivery Method Room Air 11/21/20 15:01 Oxygen Flow Rate 0 11/21/20 15:01 Pain Level 0 11/21/20 15:01 Intake & Output 11/20/20 11/21/20 11/21/20 23:59 11:59 23:59 Intake Total 2125.333 / 2125.333 1010 / 2810 1800 / 2810 Output Total 900 / 1200 300 / 300 Balance 1225.333 / 925.333 710 / 2510 1800 / 2510 Weight 62.5 kg Intake: IV 995.333 / 732.470 6424 / 1010 Oral 1130 / 1130 1800 / 1800 Output: Urine 900 / 1200 300 / 300 Other: Urine Color Pale Pale Yellow Urine Appearance Clear Clear Clear Urine Odor Normal Normal Comment Patient voids in the toliet independently. Patient voids in the toliet independently. 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 denies nloj-Abxu-vzjnaiwmuk Surgical History nasal polyp removal (~1979) Family History Mother , alzheimers, HF at age 73. Arthritis Heart disease Bipolar 1 disorder Colitis Dementia Father , [place] at age 73. Diabetes Hyperlipidemia Myocardial infarction Heart disease Hypertension Sister Hypertension Sister Mental disorder Bipolar disorder Sister Colitis Grandfather Cancer Intestinal cancer Brother Mental disorder Depression Social History Smoking/Tobacco Use Status: Current every day Tobacco Type: cigarettes Smoking packs per day: 1 Smoking cigarettes per day: 20.0 Years smoked: 38 Smoking pack-years: 38.00 Tobacco: How many years used: 41 Smoking risk assessment performed?: Yes Alcohol Intake: current Alcohol Intake frequency: holidays/special occasions only Drug use: Never Substance use type: marijuana Details: Etibles at night to help with sleep Caregiver/Support person: No Household members: spouse Housing: house Number of Children: 0 Communication Needs: None Education Level: high school Do you need help understanding health information?: Rarely 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, 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 Pets and animals: No Sexually active: Yes Do you think of yourself as: straight/heterosexual Current gender identity: female What is your relationship status?: How often do you talk on the phone with friends or family?: three or more times per week How often do you get together with friends or relatives?: once per week Do you belong to any clubs or organized social groups?: no Panel score (0-1 are the most socially isolated patients): 2 What type of physical activity do you participate in: other Details: snowshoeing Duration: 60-90 minutes/day Frequency: 1-2 times per week Catrachita/Religious: Confucianism Seatbelt use: sometimes Helmet use: No Drive intox or ride w/intox vacuum truck driver: No Working smoke detector in home: No Fire extinguisher in home: Yes Carbon monox detector in home: No Firearms in home: Yes Firearms unloaded and locked: Yes Do you feel safe at home: Yes Do you feel safe in your relationship?: Yes Female Reproductive History Menstrual Menopause type: natural (LMP ~2003)
== END 2020-11-21 17:34 | disposition home or self-care (01) ==
LOC: MS 15:40
PROVIDERS: Admitting Provider Surgery; PCP Nurse Practitioner Family; Visit Provider Surgery
PROC: 0DJD8ZZ Inspection of Lower Intestinal Tract, Via Natural or Artificial Opening Endoscopic (ICD-10-PCS; CPT 45378; principal; 2020-11-20 13:30)
DX: J95.89 Other postprocedural complications and disorders of respiratory system, not elsewhere classified (principal); Z12.11 Encounter for screening for malignant neoplasm of colon; K63.5 Polyp of colon; J69.8 Pneumonitis due to inhalation of other solids and liquids; E11.9 Type 2 diabetes mellitus without complications; F41.9 Anxiety disorder, unspecified; F32.9 Major depressive disorder, single episode, unspecified; M17.0 Bilateral primary osteoarthritis of knee; I10 Essential (primary) hypertension; K21.9 Gastro-esophageal reflux disease without esophagitis; E78.5 Hyperlipidemia, unspecified; R73.01 Impaired fasting glucose; G47.00 Insomnia, unspecified; M19.031 Primary osteoarthritis, right wrist; L71.9 Rosacea, unspecified; F17.210 Nicotine dependence, cigarettes, uncomplicated; K57.30 Diverticulosis of large intestine without perforation or abscess without bleeding; D12.3 Benign neoplasm of transverse colon; K62.1 Rectal polyp
CPT/HCPCS: 45380; 88305; J1650; 71045; 71046; 94640; G0378; J2001; J2060; J2704; J7512; J7613

== ENCOUNTER 2020-11-23 01:14 | Outpatient (CLI) | payer OTHER, SELFPAY ==
--- NOTE | 2020-11-23 07:15 | DI.RAD_ITS ---
Exam(s) XR CHEST 2V PA LATERAL EXAM: XR CHEST 2V PA LATERAL CLINICAL HISTORY: F/U INFILTRATE, ASPIRATION PNEUMONITIS,SMOKER,J69.0,F17.200. TECHNIQUE: 2D digital imaging was performed. COMPARISON: CR XR CHEST 2V PA LATERAL from 11/21/2020 FINDINGS: Heart size is normal. The mediastinum is not widened. The previously present infiltrate in the left lung has resolved. Both lungs are presently clear. Th ere are no pleural effusions. IMPRESSION: Radiographic resolution of the infiltrate in the left lung which was evident on chest x-ray 2 days ag o. DATA REPOSITORY: RADIATION DOSE DELIVERED:
== END 2020-11-23 01:34 ==
PROVIDERS: PCP Nurse Practitioner Family; Visit Provider Surgery
DX: J69.0 Pneumonitis due to inhalation of food and vomit (principal); F17.200 Nicotine dependence, unspecified, uncomplicated
CPT/HCPCS: 71046

== ENCOUNTER 2021-11-21 04:53 | Outpatient (CLI) | payer OTHER, SELFPAY ==
[2021-11-21 07:56] LABS: Abs Immature Grans 0.02 10^3/uL (0.0-0.06); Absolute Basophil Count 0.04 10^3/uL (0.0-0.2); Absolute Eosinophil Count 0.01 10^3/uL (0.0-0.7); Absolute Lymphocyte Count 3.02 10^3/uL (1.2-3.4); Absolute Monocyte Count 0.68 10^3/uL (0.1-0.8); Basophils % 0.4; Eosinophils % 0.1; HCT 41.1 % (36.0-46.0); HGB 13.7 g/dL (11.2-15.7); Immature Grans % 0.2; Lymphocytes % 27.3; MCH 30.4 pg (27.0-33.0); MCHC 33.3 % (32.0-36.0); MCV 91.1 fL (80-95); MPV 9.5 fL (8.0-11.0); Monocytes % 6.1; Neutrophils % 65.9; Platelet Count 472 10^3/uL (130-400); RBC 4.51 10^6/uL (3.93-5.22); RDW 13.2 % (11.7-14.6); WBC 11.08 10^3/uL (4.4-10.8)
[2021-11-21 09:08] LABS: Hemoglobin A1C 5.9 % (<5.7)
[2021-11-21 09:22] LABS: ALT 23 U/L (14-59); AST 11 U/L (15-37); Albumin 4.2 g/dL (3.4-5.0); Alkaline Phosphatase 108 U/L (46-116); Anion Gap 8.3 mmol/L (3-11); BUN 14 mg/dL (7-18); Bilirubin, Total 0.8 mg/dL (0.2-1.0); CO2 27.7 mmol/L (21.0-32.0); CREATININE 0.7 mg/dL (0.55-1.02); Calcium 9.1 mg/dL (8.5-10.1); Calculated LDL 104 mg/dL (<100); Chloride 102 mmol/L (98-107); Cholesterol 172 mg/dL (<200); Glucose 136 mg/dL (74-106); HDL Cholesterol 55 mg/dL (40-60); Potassium 4.4 mmol/L (3.5-5.1); Sodium 138 mmol/L (136-145); Total Protein 7.7 g/dL (6.4-8.2); Triglyceride 66 mg/dL (<150)
== END 2021-11-21 04:54 | disposition home or self-care (01) ==
LOC: LBO 04:53
PROVIDERS: PCP Nurse Practitioner Family; Visit Provider Nurse Practitioner Family
DX: R73.01 Impaired fasting glucose (principal); E78.5 Hyperlipidemia, unspecified; I10 Essential (primary) hypertension; Z51.81 Encounter for therapeutic drug level monitoring
CPT/HCPCS: 36415; 80053; 80061; 83036; 85025

== ENCOUNTER 2021-12-04 01:57 | Outpatient (CLI) | payer OTHER, SELFPAY | END 2021-12-04 01:58 | disposition home or self-care (01) | LOC: LBO 01:57 | PROVIDERS: PCP Nurse Practitioner Family; Referring Provider Nurse Practitioner Family | CPT/HCPCS: 36415; 80053; 80061; 81241; 83036; 85025 ==

== ENCOUNTER 2022-11-05 02:30 | Outpatient (CLI) | payer OTHER, SELFPAY ==
[2022-11-05 07:56] LABS: Abs Immature Grans 0.03 10^3/uL (0.0-0.06); Absolute Basophil Count 0.08 10^3/uL (0.0-0.2); Absolute Eosinophil Count 0.16 10^3/uL (0.0-0.7); Absolute Lymphocyte Count 4.11 10^3/uL (1.2-3.4); Absolute Monocyte Count 0.84 10^3/uL (0.1-0.8); Absolute Neutrophil Count 5.37 10^3/uL (1.2-6.7); Basophils % 0.8; Eosinophils % 1.5; HGB 15.3 g/dL (11.2-15.7); Immature Grans % 0.3; Lymphocytes % 38.8; MCH 30.9 pg (27.0-33.0); MCV 91 fL (80-95); MPV 9.4 fL (8.0-11.0); Monocytes % 7.9; Neutrophils % 50.7; Platelet Count 387 10^3/uL (130-400); RBC 4.95 10^6/uL (3.93-5.22); RDW 13.6 % (11.7-14.6); RDW-SD 45.9 fL; WBC 10.59 10^3/uL (4.4-10.8)
[2022-11-05 08:06] LABS: Hemoglobin A1C 5.8 % (<5.7)
[2022-11-05 08:43] LABS: Iron 111 ug/dL (50-170); Total Iron Binding Capacity 308 ug/dL (250-450)
[2022-11-05 08:54] LABS: ALT 48 U/L (14-59); AST 18 U/L (15-37); Albumin 3.5 g/dL (3.4-5.0); Alkaline Phosphatase 133 U/L (46-116); BUN 15 mg/dL (7-18); Bilirubin, Total 0.4 mg/dL (0.2-1.0); CREATININE 0.8 mg/dL (0.55-1.02); Calcium 8.7 mg/dL (8.5-10.1); Calculated LDL 126 mg/dL (<100); Chloride 103 mmol/L (98-107); Cholesterol 209 mg/dL (<200); Estimated GFR 83.78 (mL/min/1.73m2); Ferritin 118 ng/mL (8-252); Folate 19.2 ng/mL (8.6-20.0); Glucose 103 mg/dL (74-106); HDL Cholesterol 65 mg/dL (40-60); Potassium 4.1 mmol/L (3.5-5.1); Sodium 139 mmol/L (136-145); TSH 1.72 uIU/mL (0.36-3.74); Total Protein 7.9 g/dL (6.4-8.2); Triglyceride 90 mg/dL (<150); Vitamin B12 1063 pg/mL (193-986)
[2022-11-05 09:07] LABS: Vitamin D 25 Total 28.6 ng/mL (30-100)
[2022-11-05 09:11] LABS: FREE T4 1.13 ng/dL (0.76-1.46)
[2022-11-05 20:32] LABS: T3,Free 5.3 pg/mL (2.8-5.3)
[2022-11-06 10:29] LABS: Homocysteine 7.3 umol/L (5.0-13.9)
[2022-11-07 09:07] LABS: Insulin 9.6 uIU/mL (<29.0)
[2022-11-07 11:43] LABS: Lipoprotein (a) 175 nmol/L (<75)
== END 2022-11-05 02:31 | disposition home or self-care (01) ==
LOC: LBO 02:31
PROVIDERS: PCP Nurse Practitioner Family; Visit Provider Naturopath
DX: Z13.220 Encounter for screening for lipoid disorders (principal); R73.03 Prediabetes; F41.9 Anxiety disorder, unspecified; R53.83 Other fatigue; E55.9 Vitamin D deficiency, unspecified
CPT/HCPCS: 36415; 80053; 80061; 82306; 83090; 83695; 82607; 82728; 82746; 83036; 83525; 83540; 83550; 84439; 84443; 84481; 85025

== ENCOUNTER 2024-03-23 02:54 | Outpatient (CLI) | payer OTHER, SELFPAY ==
[2024-03-23 13:09] LABS: ALT 25 U/L (14-59); AST 11 U/L (15-37); Albumin 3.8 g/dL (3.4-5.0); Alkaline Phosphatase 111 U/L (46-116); Anion Gap 8.6 mmol/L (3-11); BUN 11 mg/dL (7-18); Bilirubin, Total 0.43 mg/dL (0.2-1.0); CO2 28.4 mmol/L (21.0-32.0); CREATININE 0.7 mg/dL (0.55-1.02); Calcium 9.6 mg/dL (8.5-10.1); Chloride 103 mmol/L (98-107); Estimated GFR 97.12 (mL/min/1.73m2); Glucose 94 mg/dL (74-106); Potassium 3.7 mmol/L (3.5-5.1); Sodium 140 mmol/L (136-145); Total Protein 7.7 g/dL (6.4-8.2)
[2024-03-23 14:42] LABS: Vitamin D 25 Total > 150 ng/mL (30-100)
== END 2024-03-23 02:55 | disposition home or self-care (01) ==
LOC: LBO 02:54
PROVIDERS: PCP Nurse Practitioner Family; Visit Provider Naturopath
DX: E55.9 Vitamin D deficiency, unspecified (principal); Z71.3 Dietary counseling and surveillance
CPT/HCPCS: 36415; 80053; 82306

== ENCOUNTER 2024-06-19 14:14 | Emergency (ER) | payer OTHER, SELFPAY ==
[2024-06-19 14:21] VITALS: BP 171/64; PULSE 106; RESP 20; O2SAT 95
[2024-06-19 14:55] LABS: Abs Immature Grans 0.04 10^3/uL (0.0-0.06); Absolute Basophil Count 0.05 10^3/uL (0.0-0.2); Absolute Eosinophil Count 0.05 10^3/uL (0.0-0.7); Absolute Lymphocyte Count 1.94 10^3/uL (1.2-3.4); Absolute Monocyte Count 1.23 10^3/uL (0.1-0.8); Absolute Neutrophil Count 12.49 10^3/uL (1.2-6.7); Basophils % 0.3 %; Eosinophils % 0.3 %; HCT 36.3 % (36.0-46.0); HGB 12.4 g/dL (11.2-15.7); Immature Grans % 0.3 %; Lymphocytes % 12.3 %; MCH 31.6 pg (27.0-33.0); MCHC 34.2 % (32.0-36.0); MCV 92 fL (80-95); MPV 9.9 fL (8.0-11.0); Monocytes % 7.8 %; Platelet Count 349 10^3/uL (130-400); RBC 3.93 10^6/uL (3.93-5.22); RDW 13.4 % (11.7-14.6); WBC 15.81 10^3/uL (4.4-10.8)
[2024-06-19] MEDS: OLANZapine 10 MG TAB PO (14:56)
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
[2024-06-19 15:20] LABS: ALT 23 U/L (14-59); AST 14 U/L (15-37); Albumin 3.5 g/dL (3.4-5.0); Alkaline Phosphatase 114 U/L (46-116); Anion Gap 9.2 mmol/L (3-11); BUN 13 mg/dL (7-18); Bilirubin, Total 0.71 mg/dL (0.2-1.0); CO2 27.8 mmol/L (21.0-32.0); CREATININE 0.9 mg/dL (0.55-1.02); Chloride 103 mmol/L (98-107); Estimated GFR 71.83 (mL/min/1.73m2); Glucose 127 mg/dL (74-106); Potassium 3.2 mmol/L (3.5-5.1); Salicylate < 2.8 mg/dL (<2.8); Sodium 140 mmol/L (136-145); TSH (W/Ref FT4) 0.98 uIU/mL (0.36-3.74); Total Protein 7.4 g/dL (6.4-8.2)
[2024-06-19 15:21] LABS: Bilirubin Negative (Negative); Blood Negative (Negative); Clarity Clear (Clear); Glucose Negative (Negative); Ketones Negative (Negative); Leukocyte Esterase Trace (Negative); Nitrite Negative (Negative); Specific Gravity 1.015 (1.005-1.025); Urobilinogen 0.2 mg/dL (Up to 0.2); pH 5.5 (5-8)
[2024-06-19 15:22] LABS: Acetaminophen < 2 ug/mL (10-30); ETHANOL BLOOD < 3.0 mg/dL (<10)
[2024-06-19 15:29] LABS: *AMPHETAMINES SCREEN URINE Negative (Negative); *BARBITURATES SCREEN URINE Negative (Negative); *BENZODIAZEPINES SCREEN URINE Negative (Negative); Cannabinoids THC Positive (Negative); Cocaine Screen,Urine Negative (Negative); METHADONE URINE SCREEN Negative (Negative); OPIATES URINE SCREEN Negative (Negative)
[2024-06-19 15:34] LABS: Tricyclic Antidepressants Negative (Negative)
[2024-06-19 15:39] LABS: Bacteria Rare HPF (Negative); C & S Indicated? No/Sq. Contamination; Casts Negative LPF (Negative); Crystals Negative HPF (Negative); Epithelial Cells Moderate HPF (Negative); Mucus Trace (Negative); Other Cells Rare Transitional (Negative); RBC 0-2 HPF (0-2)
--- NOTE | 2024-06-19 15:56 | CMSP_ITS ---
Date of service: 06/19/24 Time of Service: 15:56 Care Management Safety Plan Status Status: Involuntary Reason for Wait Reason for Wait: Inpatient Admission (Quita is waiting for her second certification prior to inpatient admission) and Assessment/Screening Safety Plan Safety Plan: INVOLUNTARY FOR INPATIENT PSYCHIATRIC STABILIZATION.? Patient is appropriate in all interactions since arriving at [facility]; Pt has demonstrated appropriate coping and communication skills, has articulated his or her needs and concerns and is fully engaged during staff interactions. Safety plan has been established with patient, and care team, to adhere to patient goals, identify restrictions based on behavioral status, address nutrition, and determine allowed personal belongings, tools for hygiene and personal care. Determine level of activity including ambulation, level of supervision, visitors, and determine privileges based on behaviors and level of engagement by pt. SAFETY PLAN: 1. Will remain on suicide precautions, in paper clothes 2. Will remain in Zone B under direct supervision of one-on-one staff at all times provided by [employer]; RADHA, SENIOR PREMIUM AUDITOR quality supervisor. 3. May have paper cups, plates, finger foods as well as a cardboard spoon with which to eat meals. 4. Follow [facility] Management of the Admitted Behavioral Health Patient policy. 5. Shower available in Zone B without restriction. 6. Personal belongings-soft items permitted at RN discretion. 7. Visitors-none at this time. 8. Activities: soft cart items approved per RN discretion. 9.? Bathroom available in Zone B without restriction. 10. Phone: limited to [facility] cordless phone at RN discretion. Due to INVOLUNTARY status, patient is being held at [facility] by the Department of Mental Health ([facility]) until 2nd certification by [facility] Psychiatrist can be performed (within 24 hours). Staff will provide de-escalation support (CPI) as needed. If patient wishes to leave [facility], staff will contact [facility] Crisis Screener ([phone]) and Feed Manager ([phone]) as soon as possible. In the event of elopement, notify [place] [employer] Police ([phone]). Patient is currently involuntarily at [facility]. [facility] Frontline Market Gardener will continue seeking placement. Please contact the Feed Manager for any needed changes to Safety Plan. Safety plan has been provided to interdepartmental care team. Patient will be transported by [facility] at time of discharge.
--- NOTE | 2024-06-19 15:59 | PDOC.CMPRO ---
Date of service: 06/19/24 Time of Service: 16:00 Care Management Progress Note Progress Note Text Progress Note Text: Quita has a history of mental health disorder, likely bipolar disorder, anxiety presents for evaluation of altered mental status. Patient presents with [facility] and [facility] on an emergent mental health warrant. NK reports that they have been involved with the patient for the last week and have received multiple witness statements from multiple family members concerning for the patient's wellbeing and mental status [facility] is fully involved, and referrals have been sent. SDOH(Care Management) Screening Will the Patient Participate in the Screening?: Declined to provide
[2024-06-19] MEDS: Acetaminophen 500 MG TAB 1000 MG PO (16:02)
[2024-06-19 16:13] VITALS: BP 132/88; PULSE 106; TEMP 36.1; O2SAT 94
[2024-06-19] MEDS: Potassium Chloride Liquid 20 MEQ PKT 40 MEQ PO (16:14)
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
[2024-06-19 19:29] VITALS: PULSE 96; O2SAT 95
[2024-06-19] MEDS: Ibuprofen 600 MG TAB PO (22:09)
--- NOTE | 2024-06-19 22:58 | DI.RAD_ITS ---
Exam(s) XR KNEE LT 2V AP,LAT EXAM: XR KNEE LT 2V AP,LAT CLINICAL HISTORY: KNEE PAIN. TECHNIQUE: 2D digital imaging was performed. COMPARISON: No exams were available for comparison FINDINGS: Two views-AP and lateral No obvious acute fracture although there does appear to be a small joint effusion evident. There is advanced narrowing of the medial compartment as well as significant narrowing of the patellofemoral c ompartment. In addition, there is an osteophytic density measuring approximately 1.5 x 1.0 cm off th e medial aspect of the knee joint adjacent to the outer aspect of the medial femoral condyle. Intima tely related to the medial collateral ligament There is also a 2-3 mm calcific density adjacent to the tip of the lateral tibial spine. May be dege nerative but cannot exclude a small loose intra-articular body in at this level. IMPRESSION: Degenerative changes most evident in the medial patellofemoral compartments. There is a 15 x 10 millimeter independent osseous density off the medial aspect of the joint in the r egion of the MCL/outer aspect of the medial femoral condyle. Possibly related to prior injury or loo se body. DATA REPOSITORY: RADIATION DOSE DELIVERED:
--- NOTE | 2024-06-20 00:05 | DI.VRAD_ITS ---
PROCEDURE INFORMATION: Exam: XR Left Knee Exam date and time: 06/19/2024 10:50 PM Age: 64 years old Clinical indication: Left; Patient HX: Knee pain TECHNIQUE: Imaging protocol: Radiologic exam of the left knee. Views: 1 or 2 views. COMPARISON: No relevant prior studies available. FINDINGS: Bones/joints: Osteoarthritis. There is an approximately 1.6 cm osseous fragment/calcification just medial to the medial femoral epicondyle which is presumably a soft tissue calcification or old fracture fragment. No priors for comparison. No definite discernible acute fracture. Small suprapatellar knee joint effusion. Soft tissues: See Bones/joints finding. IMPRESSION: 1. Osteoarthritis. There is an approximately 1.6 cm osseous fragment/calcification just medial to the medial femoral epicondyle which is presumably a soft tissue calcification or old fracture fragment. No priors for comparison. No definite discernible acute fracture. 2. Small suprapatellar knee joint effusion. Dictated and Authenticated by: Luis A Gomez MD. Ordering:AlexiBAYRON Yee MD
[2024-06-20] MEDS: Acetaminophen 500 MG TAB 1000 MG PO (05:04)
--- NOTE | 2024-06-20 05:24 | NUR.NOTE ---
Nursing Note: [facility] [employer] alerted this RN. Patient verbally aggressive towards staff. This RN attempted to verbally deescalate patient. Spoke with Dr. Reynolds who placed order for acetaminophen and Valium. Offered patient the acetaminophen and Valium. Pt agreed to take the Tylenol but declined the Valium stating that she did not know what it was so she was not taking it. Pt stated she wanted something to eat with the medication. Offered the patient sugar free jello and pudding. Patient stated she was not eating the jello because it was full of sugar. This RN let patient know that the cafeteria opens in 1.5 hours and we could order breakfast at that time. Pt states you're driving me crazy! this place is crazy! you're starving me! i'll just go home and make my own breakfast! I want a shower! Give me my clothes so I can shower. Pt told that she could take a shower if she would like and staff would get her a towel and some clean clothes. patient went to the bathroom and while staff began to get shower things together, patient walked back to the room and laid back down quietly. MD mendoza.
--- NOTE | 2024-06-20 06:50 | W.EDPROG ---
Date of service: 06/20/24 Time of Service: 06:50 Medical Decision Making Patient was signed out to me. Second certification complete. Patient was aggravated throughout the night, complaining of various components, agitation, and afraid that we were going to poison her amongst other things. X-ray shows no evidence of fracture. Patient did receive Tylenol and Motrin. She refused any additional medications including refused Valium, Haldol and Zyprexa. Patient remains in zone B awaiting placement. FINDINGS: Bones/joints: Osteoarthritis. There is an approximately 1.6 cm osseous fragment/calcification just medial to the medial femoral epicondyle which is presumably a soft tissue calcification or old fracture fragment. No priors for comparison. No definite discernible acute fracture. Small suprapatellar knee joint effusion. Soft tissues: See Bones/joints finding. IMPRESSION: 1. Osteoarthritis. There is an approximately 1.6 cm osseous fragment/calcification just medial to the medial femoral epicondyle which is presumably a soft tissue calcification or old fracture fragment. No priors for comparison. No definite discernible acute fracture. 2. Small suprapatellar knee joint effusion. Dictated and Authenticated by: Luis A Gomez MD. Ordering:LYLA Yee MD Quality:[facility] Health Related Social Needs: No Data to Display Sign Out Sign Out Data: Sign Out Comment: EE with 2nd cert completed , pending involuntary placement patient is delusional, paranoid, made multiple threats to family members refusing medications but does have PRN zyprexa and QHS seroquel ordered Last updated by Jayde Delgado MD at 06/19/24 23:58 Discharge Plan Discharge Details Chief Complaint: PsychEval Clinical Impression: Psychosis Primary Care Provider: Leticia Samuels ED Provider: Mykel Reynolds Home Meds and New Rx's Prescriptions: No Action hydroxyzine HCl 25 mg tablet 25 - 50 mg PO QID PRN (Reason: anxiety) Qty: 30 0RF Patient Comments: per PCP list, unsure if she has been taking Rx Instructions: KEEP ON MED LIST - IS USED FOR RARE PRN USE Adult Probiotic 3 billion cell capsule 3,000 mmu cells PO DAILY Patient Comments: per PCP list, unsure if she's been taking turmeric root extract 1,053 mg tablet 1,053 mg PO DAILY Patient Comments: per PCP list, unsure if she's been taking (DME) lancets 28 gauge misc 1 ea Miscellaneous DAILY Qty: 100 3RF Rx Instructions: Dx: R73.01 to maintain HbA1c less than 7%. No insulin. PLEASE DISPENSE BRAND COVERED BY INSURANCE (DME) blood-glucose meter 1 EACH misc 1 ea Miscellaneous DAILY Qty: 1 0RF Rx Instructions: Dx: R73.01 to maintain HbA1c less than 7%. No insulin. Please dispense brand covered by insurance. (DME) Blood Glucose Test Strip 1 ea Miscellaneous DAILY Qty: 100 3RF Rx Instructions: Dx: R73.01 to maintain HbA1c less than 7%. No insulin. PLEASE DISPENSE BRAND COVERED BY INSURANCE omeprazole 20 mg capsule,delayed release(DR/EC) 20 mg PO DAILY Qty: 90 0RF Patient Comments: per PCP list, unsure if she's been taking Rx Instructions: Take 20 mg once daily in the morning at least 30 minutes before first meal aspirin 81 mg Tablet,Delayed Release (Dr/Ec) 81 mg PO DAILY Patient Comments: per PCP list, unsure if she has been taking
--- NOTE | 2024-06-20 07:04 | W.EDPROG ---
Date of service: 06/20/24 Time of Service: 07:04 Medical Decision Making Patient here on involuntary status for psychosis and aggressive behavior, currently without acute complaint. Will continue to monitor until safe disposition found. Quality:SDOH Health Related Social Needs: No Data to Display Sign Out Sign Out Data: Sign Out Comment: EE with 2nd cert completed , pending involuntary placement patient is delusional, paranoid, made multiple threats to family members refusing medications but does have PRN zyprexa and QHS seroquel ordered Last updated by Jayde Delgado MD at 06/19/24 23:58 Sign Out Comment: Psychosis, pending involuntary placement. Last updated by Mykel Reynolds DO at 06/20/24 07:00 Discharge Plan Discharge Details Chief Complaint: PsychEval Clinical Impression: Psychosis Primary Care Provider: Leticia Samuels ED Provider: Manuel Tatum Home Meds and New Rx's Prescriptions: No Action hydroxyzine HCl 25 mg tablet 25 - 50 mg PO QID PRN (Reason: anxiety) Qty: 30 0RF Patient Comments: per PCP list, unsure if she has been taking Rx Instructions: KEEP ON MED LIST - IS USED FOR RARE PRN USE Adult Probiotic 3 billion cell capsule 3,000 mmu cells PO DAILY Patient Comments: per PCP list, unsure if she's been taking turmeric root extract 1,053 mg tablet 1,053 mg PO DAILY Patient Comments: per PCP list, unsure if she's been taking (DME) lancets 28 gauge misc 1 ea Miscellaneous DAILY Qty: 100 3RF Rx Instructions: Dx: R73.01 to maintain HbA1c less than 7%. No insulin. PLEASE DISPENSE BRAND COVERED BY INSURANCE (DME) blood-glucose meter 1 EACH misc 1 ea Miscellaneous DAILY Qty: 1 0RF Rx Instructions: Dx: R73.01 to maintain HbA1c less than 7%. No insulin. Please dispense brand covered by insurance. (DME) Blood Glucose Test Strip 1 ea Miscellaneous DAILY Qty: 100 3RF Rx Instructions: Dx: R73.01 to maintain HbA1c less than 7%. No insulin. PLEASE DISPENSE BRAND COVERED BY INSURANCE omeprazole 20 mg capsule,delayed release(DR/EC) 20 mg PO DAILY Qty: 90 0RF Patient Comments: per PCP list, unsure if she's been taking Rx Instructions: Take 20 mg once daily in the morning at least 30 minutes before first meal aspirin 81 mg Tablet,Delayed Release (Dr/Ec) 81 mg PO DAILY Patient Comments: per PCP list, unsure if she has been taking
[2024-06-20] MEDS: QUEtiapine 100 MG TAB PO (08:38)
[2024-06-20 09:15] VITALS: BP 137/81; PULSE 91; RESP 16; TEMP 36.7; O2SAT 94
--- NOTE | 2024-06-20 09:55 | CMSP_ITS ---
Date of service: 06/20/24 Time of Service: 09:55 Care Management Safety Plan Status Status: Involuntary (Pt has had her second certification) Reason for Wait Reason for Wait: Community Placement (referrals have been sent by [facility]) Safety Plan Safety Plan: INVOLUNTARY FOR INPATIENT PSYCHIATRIC STABILIZATION.? Patient is appropriate in all interactions since arriving at [facility]; Pt has demonstrated appropriate coping and communication skills, has articulated his or her needs and concerns and is fully engaged during staff interactions. Safety plan has been established with patient, and care team, to adhere to patient goals, identify restrictions based on behavioral status, address nutrition, and determine allowed personal belongings, tools for hygiene and personal care. Determine level of activity including ambulation, level of supervision, visitors, and determine privileges based on behaviors and level of engagement by pt. SAFETY PLAN: 1. Will remain on suicide precautions, in paper clothes 2. Will remain in Zone B under direct supervision of one-on-one staff at all times provided by [employer]; RADHA, CHILD STUDY TEAM DIRECTOR story editor. 3. May have paper cups, plates, finger foods as well as a cardboard spoon with which to eat meals. 4. Follow [facility] Management of the Admitted Behavioral Health Patient policy. 5. Shower available in Zone B without restriction. 6. Personal belongings-soft items permitted at RN discretion. 7. Visitors-none at this time. 8. Activities: soft cart items approved per RN discretion. 9.? Bathroom available in Zone B without restriction. 10. Phone: limited to [facility] cordless phone at RN discretion. Due to INVOLUNTARY status, patient is being held at [facility] by the Department of Mental Health ([facility]) until 2nd certification by [facility] Psychiatrist can be performed (within 24 hours). Staff will provide de-escalation support (CPI) as needed. If patient wishes to leave [facility], staff will contact [facility] Crisis Screener ([phone]) and Finance Attorney ([phone]) as soon as possible. In the event of elopement, notify [place] [employer] ([phone]). Patient is currently involuntarily at [facility]. [facility] Frontline Creative Producer will continue seeking placement. Please contact the Finance Attorney for any needed changes to Safety Plan. Safety plan has been provided to interdepartmental care team. Patient will be transported by [facility] at time of discharge.
--- NOTE | 2024-06-20 09:55 | PDOC.CMSAFE ---
Date of service: 06/20/24 Time of Service: 09:55 Care Management Safety Plan Status Status: Involuntary (Pt has had her second certification) Reason for Wait Reason for Wait: Community Placement (referrals have been sent by [facility]) Safety Plan Safety Plan: INVOLUNTARY FOR INPATIENT PSYCHIATRIC STABILIZATION.? Patient is appropriate in all interactions since arriving at [facility]; Pt has demonstrated appropriate coping and communication skills, has articulated his or her needs and concerns and is fully engaged during staff interactions. Safety plan has been established with patient, and care team, to adhere to patient goals, identify restrictions based on behavioral status, address nutrition, and determine allowed personal belongings, tools for hygiene and personal care. Determine level of activity including ambulation, level of supervision, visitors, and determine privileges based on behaviors and level of engagement by pt. SAFETY PLAN: 1. Will remain on suicide precautions, in paper clothes 2. Will remain in Zone B under direct supervision of one-on-one staff at all times provided by [employer]; RADHA, CHRONIC SPECIALIST reactor service operator. 3. May have paper cups, plates, finger foods as well as a cardboard spoon with which to eat meals. 4. Follow [facility] Management of the Admitted Behavioral Health Patient policy. 5. Shower available in Zone B without restriction. 6. Personal belongings-soft items permitted at RN discretion. 7. Visitors-none at this time. 8. Activities: soft cart items approved per RN discretion. 9.? Bathroom available in Zone B without restriction. 10. Phone: limited to [facility] cordless phone at RN discretion. Due to INVOLUNTARY status, patient is being held at [facility] by the Department of Mental Health ([facility]) until 2nd certification by [facility] Psychiatrist can be performed (within 24 hours). Staff will provide de-escalation support (CPI) as needed. If patient wishes to leave [facility], staff will contact [facility] Crisis Screener ([phone]) and Sash Maker ([phone]) as soon as possible. In the event of elopement, notify [place] [employer] ([phone]). Patient is currently involuntarily at [facility]. [facility] Frontline Credit Collections Rep will continue seeking placement. Please contact the Sash Maker for any needed changes to Safety Plan. Safety plan has been provided to interdepartmental care team. Patient will be transported by [facility] at time of discharge.
--- NOTE | 2024-06-20 12:43 | PDOC.MHPN2 ---
Date of service: 06/20/24 Time of Service: 12:43 Mental Health Emergency Note Release [facility] release signed:: Yes Reason for Visit Quita is at [facility] on a mental health warrant, her 2nd cert has passed and she is awaiting involuntary treatment. In the last 2 weeks has the pt presented for ES prior to today?: Unknown Client Information Client is: New Well Housed: Yes Non Suicidal Self Injury Current: No History: No Safety Risk/Harm to Self or Others Current Ideation to Harm Self or Others: No Risk: Does risk to harm exist?: No Duty to warn indicated: No Asssessment/Mental Status Appearance: Disheveled Attitude: Passive and Guarded Behavior: Gait disturbances Speech: Normal Affect: Cogruent with mood Mood: Stressed and Anxious Thought process: Goal directed Hallucinations: No evidence Delusions: No evidence Attention: Unremarkable Perception: Not impaired Orientation: Fully orientated Memory: Intact Insight: Poor Judgement: Poor Neurovegetative Symptoms Sleep: No change Appetitie: No change Interests: No change Energy: No change Libido: Not applicable Substance Use: Do you use nicotine?: No Have you used substances in the last 7 days?: No Additional Issues: Assaultive/Threatening Behavior: No Medical Concerns: No Client engaged in active self harm w/weapon: No Child reported abuse/neglect: No Voluntarily presenting for services: No Domestic violence is a concern: No Extreme Psychosis or extreme behavior is present: Yes Impression Quita presents to this telegraphic typewriter operator in paper scrubs, laying in her hospital bed. Quita reports that she is doing well, but she is cold in her room. Quita reports today she has eaten breakfast and lunch and watched TV. Quita denies SI, HI, and NSSi to this telegraphic typewriter operator. Quita reports she feels she has gone down hill since being at the hospital and reports she has refused all medications because she does not like pills. Quita reports she does not know why she is at the hospital, this telegraphic typewriter operator explained that there was a MH warrant and then she saw a psychiatrist and she stated that it was family drama and all she needs is to go home with her cats and keep her mouth shut. This telegraphic typewriter operator let her know at this time, she can not go home as the psychiatrist feels she needs inpatient treatment and she is still meeting criteria. Quita then reported she is tired and can not talk any longer. Plan/Disposition Recommended Disposition: Hospitalization facilities contacted. Plan: Client will remain at [facility] on involuntary status until she can be transferred to an inpatient treatment center. Person reported agreement to plan: Yes Facilities contacted if Applicable [facility] Not accepted, No bed available [facility] Not accepted, No bed available [facility] Not accepted, No bed available, [facility] Not accepted, No bed available [facility] Not accepted, No bed available Reports/communication Outcome discussed with: ED/Personnel
--- NOTE | 2024-06-20 13:53 | PDOC.MHPN2 ---
Date of service: 06/20/24 Time of Service: 08:30 Mental Health Emergency Note Release [facility] release signed:: Yes Reason for Visit The client arrived today via a MH Warrant following witness statements from many family members who have significant concern for their and families safety as well as, her safety. She is only known to [facility] since 06.14.24 when ES went on a Mobile crisis response and at the time there was not enough collateral information to hold the client on an involuntary hold. This assessment is completed via telehealth early tis morning. In the last 2 weeks has the pt presented for ES prior to today?: Unknown Impression The client is a 64-year-old, , female who lives independently in her home in [place]. She uses She/Her pronouns. All under represented identifiers were honored during this assessment. The client was unavailable to answer the screening tools during this assessment. At this time the client is not oriented to person, time, situation, place etc. and therefore is not able to make sound decision for herself. The client is screened via zoom this am and was observed lying in bed and physically agitated as evidenced by tossing and turning, sitting up, lying down, and hand gestures. She has still not showered and her hair is messy. She keeps her eyes closed and is rambling things that don't make a lot of sense and denied SI and HI. She then states I don't want to talk to you. I'm done. The client is described to have slept until 4am and then has been demanding her clothes and phone and to be let go. She will be friendly with a staff one minute and the next she is angry and yelling at them. She has refused all medications. Plan/Disposition Recommended Disposition: Hospitalization facilities contacted. Plan: The client will remain at [facility] until placed and assessed twice daily. Person reported agreement to plan: No Facilities contacted if Applicable [facility] Not accepted, No bed available [facility] Not accepted, Other (They never called back. Called at 9am and 1pm. ), [facility] Not accepted, No bed available Reports/communication Outcome discussed with: ED/Personnel
--- NOTE | 2024-06-20 14:23 | CMPROGNOTE_ITS ---
Date of service: 06/20/24 Time of Service: 14:23 Care Management Progress Note Progress Note Text Progress Note Text: CM spoke with Sheryl from [facility] today. Both [place] and [place] have no available beds, and [facility] did not reply to 2 calls from Sheryl. Quita did speak with [facility] earlier in the day. There are no changes made today. Sheryl stated that contacts were updated to include Quita's sister, but that does not appear in the chart as yet. CM will continue to follow. Discharge Anticipated Barriers to Discharge: Bed availability Transportation: Other ([facility]) Reason for Wait: Inpatient Admission SDOH(Care Management) Screening Will the Patient Participate in the Screening?: Declined to provide
[2024-06-20] MEDS: Ibuprofen 600 MG TAB PO (16:40)
[2024-06-20] MEDS: Nicotine 21 MG/24 HR PATCH TD (23:19)
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
[2024-06-21 07:29] VITALS: BP 159/94; PULSE 86; RESP 16; TEMP 36.8; O2SAT 98
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
== END 2024-06-21 14:36 ==
PROVIDERS: Emergency Medicine; Emergency Provider Emergency Medicine; PCP Nurse Practitioner Family
DX: F22 Delusional disorders (principal); E87.6 Hypokalemia; I10 Essential (primary) hypertension; E11.9 Type 2 diabetes mellitus without complications; M06.9 Rheumatoid arthritis, unspecified; E78.5 Hyperlipidemia, unspecified; Z79.899 Other long term (current) drug therapy
CPT/HCPCS: 00123; 80053; 80307; 99285; 73560; 80320; 80329; 81003; 81015; 84443; 85025; J3490

== ENCOUNTER 2024-08-19 15:39 | Outpatient (CLI) | payer OTHER, SELFPAY ==
[2024-08-19 15:03] LABS: Abs Immature Grans 0.03 10^3/uL (0.0-0.06); HCT 43.6 % (36.0-46.0); HGB 14.3 g/dL (11.2-15.7); MCH 30.8 pg (27.0-33.0); MCHC 32.8 % (32.0-36.0); MCV 94 fL (80-95); MPV 9.2 fL (8.0-11.0); Platelet Count 373 10^3/uL (130-400); RBC 4.65 10^6/uL (3.93-5.22); RDW 13.9 % (11.7-14.6); RDW-SD 48.4 fL; WBC 10.78 10^3/uL (4.4-10.8)
[2024-08-19 15:27] LABS: Absolute Basophil Count 0.11 10^3/uL (0.0-0.2); Absolute Lymphocyte Count 6.04 10^3/uL (1.2-3.4); Absolute Monocyte Count 0.54 10^3/uL (0.1-0.8); Atypical Lymphocytes % 4 %; Bands % 0 %
[2024-08-19 15:28] LABS: Diff Comment Manual Differential
[2024-08-19 16:07] LABS: Hemoglobin A1C 5.5 % (<5.7)
[2024-08-19 16:36] LABS: ALT 14 U/L (14-59); AST 8 U/L (15-37); Albumin 3.7 g/dL (3.4-5.0); Alkaline Phosphatase 136 U/L (46-116); Anion Gap 8.1 mmol/L (3-11); BUN 15 mg/dL (7-18); Bilirubin, Total 0.32 mg/dL (0.2-1.0); CO2 27.9 mmol/L (21.0-32.0); CREATININE 0.8 mg/dL (0.55-1.02); Calcium 9.5 mg/dL (8.5-10.1); Calculated LDL 145 mg/dL (<100); Chloride 105 mmol/L (98-107); Cholesterol 232 mg/dL (<200); Estimated GFR 82.74 (mL/min/1.73m2); Glucose 87 mg/dL (74-106); HDL Cholesterol 57 mg/dL (40-60); Potassium 4.3 mmol/L (3.5-5.1); Sodium 141 mmol/L (136-145); Total Protein 7.9 g/dL (6.4-8.2); Triglyceride 152 mg/dL (<150); Vitamin B12 811 pg/mL (193-986); Vitamin D 25 Total 87.5 ng/mL (30-100)
[2024-08-19 16:37] LABS: Folate > 20.0 ng/mL (8.6-20.0)
[2024-08-22 10:01] LABS: Homocysteine 10.6 umol/L (5.0-13.9)
[2024-08-23 15:19] LABS: Apolipoprotein A1, S 145 mg/dL (>=140); Apolipoprotein B, S 110 mg/dL (See Comment); Apolipoprotein B/A 1 ratio 0.8 (See Comment)
== END 2024-08-19 15:40 | disposition home or self-care (01) ==
LOC: LBO 15:39
PROVIDERS: PCP Nurse Practitioner Family; Visit Provider Naturopath
DX: E78.5 Hyperlipidemia, unspecified (principal); R73.03 Prediabetes; E53.8 Deficiency of other specified B group vitamins; E67.3 Hypervitaminosis D
CPT/HCPCS: 36415; 80053; 80061; 82172; 82306; 83090; 82607; 82746; 83036; 85025

== ENCOUNTER 2025-01-11 14:52 | Outpatient (CLI) | payer OTHER, SELFPAY ==
[2025-01-11 15:29] LABS: Abs Immature Grans 0.02 10^3/uL (0.0-0.06); HCT 41.2 % (36.0-46.0); MCH 31.4 pg (27.0-33.0); MCV 92 fL (80-95); MPV 9.2 fL (8.0-11.0); Platelet Count 388 10^3/uL (130-400); RBC 4.46 10^6/uL (3.93-5.22); RDW 14.5 % (11.7-14.6); RDW-SD 49.7 fL; WBC 12.64 10^3/uL (4.4-10.8)
[2025-01-11 15:51] LABS: Absolute Basophil Count 0.25 10^3/uL (0.0-0.2); Absolute Eosinophil Count 0.13 10^3/uL (0.0-0.7); Absolute Lymphocyte Count 3.54 10^3/uL (1.2-3.4); Absolute Monocyte Count 0.38 10^3/uL (0.1-0.8); Absolute Neutrophil Count 8.34 10^3/uL (1.2-6.7); Diff Comment Manual Differential; RBC Morphology Normal
[2025-01-11 16:44] LABS: ALT 24 U/L (14-59); AST 8 U/L (15-37); Albumin 3.7 g/dL (3.4-5.0); Alkaline Phosphatase 133 U/L (46-116); Anion Gap 8.2 mmol/L (3-11); BUN 16 mg/dL (7-18); Bilirubin, Total 0.5 mg/dL (0.2-1.0); CO2 26.8 mmol/L (21.0-32.0); CREATININE 0.6 mg/dL (0.55-1.02); Chloride 104 mmol/L (98-107); Glucose 86 mg/dL (74-106); Magnesium 1.9 mg/dL (1.8-2.4); Sodium 139 mmol/L (136-145); Total Protein 7.7 g/dL (6.4-8.2); Vitamin B12 771 pg/mL (193-986)
[2025-01-11 16:52] LABS: Folate > 20.0 ng/mL (8.6-20.0)
[2025-01-11 17:18] LABS: Vitamin D 25 Total 76 ng/mL (30-100)
[2025-01-13 08:27] LABS: Homocysteine 7.8 umol/L (5.0-13.9)
[2025-01-14 16:17] LABS: Copper, Serum 120 mcg/dL (77-206)
[2025-01-17 21:31] LABS: Pyridoxal 5-Phosphate (PLP), P 9 mcg/L (5-50)
== END 2025-01-11 14:53 | disposition home or self-care (01) ==
LOC: LBO 14:53
PROVIDERS: PCP Nurse Practitioner Family; Visit Provider Naturopath
DX: F30.2 Manic episode, severe with psychotic symptoms (principal); E55.9 Vitamin D deficiency, unspecified
CPT/HCPCS: 36415; 80053; 82306; 82525; 83090; 82607; 82746; 83735; 84207; 85025

== ENCOUNTER 2025-01-20 13:52 | Outpatient (REF) | payer OTHER, SELFPAY ==
[2025-01-20 14:01] LABS: Bilirubin Negative (Negative); Blood Negative (Negative); Clarity Clear (Clear); Glucose Negative (Negative); Ketones Trace mg/dL (Negative); Leukocyte Esterase Negative (Negative); Nitrite Negative (Negative); Urobilinogen 0.2 mg/dL (Up to 0.2)
== END 2025-01-20 13:53 | disposition home or self-care (01) ==
LOC: LBN 13:52
PROVIDERS: PCP Nurse Practitioner Family; Visit Provider Naturopath
DX: D72.820 Lymphocytosis (symptomatic) (principal)
CPT/HCPCS: 81003